=== PATIENT | male | born 1995 | race Caucasian/White ===

== ENCOUNTER 2018-12-28 18:56 | Emergency (ER) | payer OTHER ==
[2018-12-28 19:30] VITALS: BP 146/86
--- NOTE | 2018-12-28 20:44 | UC ---
Laceration HPI - HPI Summary HPI Summary: 23 y/o male presents to the urgent care c/o - History Of Current Complaint Chief Complaint: UCLaceration Stated Complaint: RT LEG CUT Time Seen by Provider: 12/28/18 20:32 Hx Obtained From: Patient Mechanism Of Injury: Sharp Trauma Onset/Duration: Sudden Onset, Lasting Hours - 6 hrs Pain Intensity: 3 Pain Scale Used: 0-10 Numeric Aggravating Factors: Other: - touch Related History: Dominant Hand Right - Allergies/Home Medications Allergies/Adverse Reactions: Allergies Allergy/AdvReac Type Severity Reaction Status Date / Time No Known Allergies Allergy Verified 12/28/18 19:31 PMH/Surg Hx/FS Hx/Imm Hx Previously Healthy: Yes - Pt denies - Surgical History Surgical History: None - Social History Alcohol Use: Weekly Substance Use Type: Marijuana Substance Use Comment - Amount & Last Used: 1x/2weeks Smoking Status (MU): Never Smoked Tobacco - Immunization History Most Recent Tetanus Shot: unknown Physical Exam - Summary Physical Exam Summary: Vital Signs Reviewed: Yes General: well developed, well nourished female sitting in the examining table w/ o any apparent distress Eye Exam: Normal Eyes: Positive: Conjunctiva Clear - PERRLA, EOMI, fundi grossly normal ENT: Positive: Normal ENT inspection, Hearing grossly normal, Pharynx normal, TMs normal Neck: Positive: Supple, Nontender, No Lymphadenopathy Respiratory: Positive: Chest non-tender, Lungs clear, Normal breath sounds, No respiratory distress Cardiovascular: Positive: RRR, No Murmur, Pulses Normal, Brisk Capillary Refill Abdomen Description: Positive: Nontender, No Organomegaly, Soft. Negative: CVA Tenderness (R), CVA Tenderness (L) Bowel Sounds: Positive: Present Musculoskeletal: Positive: Strength Intact, ROM Intact, No Edema Neurological: Positive: Alert, Muscle Tone Normal Psychological Exam: Normal Skin: Positive: proximal RLL ove the anterior aspect with a linear superficial laceration about 2.5cm in size, bleeding, no foreign body observed. mild tenderness to palpation, mild ecchymosis around elbow. FROM of RT arm, sensation intact, capillary refill brisk, and pulses WNL. Triage Information Reviewed: Yes Vital Signs: Initial Vital Signs Temp 98.6 F 12/28/18 19:24 Pulse 69 12/28/18 19:24 Resp 16 12/28/18 19:24 BP 146/86 07/05/19 19:24 Pulse Ox 98 12/28/18 19:24 Laceration Repair - Laceration Repair 1 Description: Linear - vertical superficial laceration over the anterior aspect of the RT lower leg Laceration Size After Repair: Length (cm) - 1.2cm Modified For Repair: No Type Injection: Local Anesthesia Used: 1.0% Lido - 1ml Cleansing Completed Via Routine Prep: Yes Irrigation With Pressure Irrigation Device: Yes Closure Material: Sutures - 3 Closure Method: Single Layer Suture Of: Skin, SQ Suture Type: Nylon - 4.0 Laceration Course/Dx - Differential Dx - Laceration/Wound Differental Diagnoses: Abrasion, Laceration, Puncture Wound, Suture Removal - Diagnosis Provider Diagnosis: Laceration of right lower leg Discharge - Sign-Out/Discharge Documenting (check all that apply): Patient Departure - d/c home All imaging exams completed and their final reports reviewed: No Studies - Discharge Plan Condition: Stable Disposition: HOME Prescriptions: Bacitracin OINTMENT* 1 applic TOPICAL BID #1 tube Cephalexin CAP* [Keflex CAP*] 500 mg PO TID #21 cap Referrals: No Primary Care Phys,NOPCP [Primary Care Provider] - - Billing Disposition and Condition Condition: STABLE Disposition: Home
[2018-12-28] MEDS ORDERED: Lidocaine 1% MPF ** 5 ML VIAL INJ ONE (20:52)
[2018-12-28] MEDS ORDERED: Tetan/Diph/Pertus SYR(Tdap)* 0.5 ML SYR(BOOSTRIX) use SYR IM ONE (20:53)
[2018-12-28] MEDS ORDERED: Cephalexin CAP* 500 MG PO ONE (21:22)
== END 2018-12-28 21:39 | disposition home or self-care (01) ==
LOC: UCEAST 18:56
DX: S81.811A Laceration without foreign body, right lower leg, initial encounter (principal); W45.8XXA Other foreign body or object entering through skin, initial encounter; Y92.9 Unspecified place or not applicable
CPT/HCPCS: 12001; 90715; 99202; A9270-GY; G0463